=== PATIENT | male | born 1960 | race Caucasian/White ===

== ENCOUNTER → 2017-01-06 | Outpatient (CLI) | payer OTHER ==
[~2017-01-06] MED LIST: ALBU1AER9 INH; IPRA1AER2 INH; LISI-461 PO; OXYC-106 PO; OXYM1TAB25 PO; PRT40 PO
[2017-01-06 12:31] LABS: BLOOD UREA NITROGEN 17 mg/dl (7-18); BUN/CREATININE RATIO 20.4 (10-20); CALCIUM 9.4 mg/dl (8.5-10.1); CARBON DIOXIDE 27 mmol/L (21-32); CHLORIDE 104 mmol/L (98-107); CREATININE 0.84 mg/dl (0.60-1.40); GLUCOSE 108 mg/dl (70-99); POTASSIUM 4.4 mmol/L (3.5-5.1); SODIUM 137 mmol/L (136-145)
== END | disposition home or self-care (01) ==
LOC: C.LABBFT 10:10
PROVIDERS: ATTEND Nurse Practitioner
DX: I10 Essential (primary) hypertension (principal)

== ENCOUNTER → 2017-06-23 | Outpatient (CLI) | payer OTHER ==
[2017-06-23 17:41] LABS: ALT/SGPT 25 U/L (12-78); BLOOD UREA NITROGEN 12 mg/dl (7-18); BUN/CREATININE RATIO 14.5 (10-20); CALCIUM 9.2 mg/dl (8.5-10.1); CARBON DIOXIDE 30 mmol/L (21-32); CHLORIDE 103 mmol/L (98-107); CHOLESTEROL 176 mg/dl (0-200); CREATININE 0.85 mg/dl (0.60-1.40); GLUCOSE 97 mg/dl (70-99); POTASSIUM 4.5 mmol/L (3.5-5.1); SODIUM 137 mmol/L (136-145)
[2017-06-23 17:51] LABS: ALB/GLOB RATIO 0.9 (0.9-2); ALKALINE PHOSPHATASE 103 U/L (45-117); AST/SGOT 18 U/L (15-37); CHOLESTEROL/HDL RATIO 3.7; HDL CHOLESTEROL 47 mg/dl; LDL CHOLESTEROL CALCULATED 105 mg/dl; PROSTATE SPECIFIC ANTIGEN 0.262 ng/ml (0.000-4.000); TRIGLYCERIDES 119 mg/dl (0-150); VERY LOW DENSITY LIPOPROT CALC 24 mg/dl
== END | disposition home or self-care (01) ==
LOC: C.LABBFT 12:07
PROVIDERS: ATTEND Nurse Practitioner
DX: Z12.5 Encounter for screening for malignant neoplasm of prostate (principal); I10 Essential (primary) hypertension

== ENCOUNTER 2017-10-21 06:59 | Emergency (ER) | payer OTHER ==
[~2017-10-21] VITALS: Ht 172.7 cm; Wt 100.0 kg
[2017-10-21 07:07] VITALS: TEMP 36.5; Ht 172.7 cm; Wt 100.0 kg
[2017-10-21] MEDS ORDERED: ONDANSETRON INJ 2 MG/ML 2 ML VIAL IV STA (07:21)
[2017-10-21] MEDS ORDERED: HYDROmorphone INJ 1 MG/ML SYR IV STA ×2 (07:21→08:23)
--- NOTE | 2017-10-21 07:21 | EMERGENCY ROOM VISIT NOTE ---
History Report prepared by Jj: Sven Salmon Under the Supervision of: Dr. Bethel Wiseman M.D. First contact with patient: 07:11 Chief Complaint: FALL Stated Complaint: FALL History of Present Illness The patient is a 56 year old male who presents to the Emergency Room with complaints of constant right hip pain and lower back pain following a fall occurring an hour ago. The patient states that he was walking on his driveway this morning, when his right leg started to feel numb. He notes that his leg then gave out on him, causing him to fall on his left knee and roll over on his back. He reports that he did not hit his head or lose consciousness during or after the fall. The patient states that he laid in his driveway for 45 minutes prior to EMS arriving. He denies any CP, SOB, and abdominal pain. He notes that he has a history of back problems, hip problems, and high blood pressure, but is not currently taking any blood thinners. He reports that his leg feels like it normally does, but states that his pain is worse than usual. He rates his pain as an 8/10. Source of History: patient Onset: an hour ago Position: back (lower), other (right hip) Symptom Intensity: 8/10 Timing: constant Associated Symptoms: No LOC, No chest pain, No SOB, No abdominal pain Note: He also complains of right leg numbness and right leg pain. Review of Systems See HPI for pertinent positives & negatives. A total of 10 systems reviewed and were otherwise negative. Past Medical & Surgical Medical Problems: (1) Acute kidney injury (2) ARF (acute renal failure) (3) Empyema (4) HTN (hypertension) (5) Leg pain Old medical records were reviewed. Nurse's notes were reviewed and I agree with. Family History Diabetes mellitus FH: cancer FH: heart disease FH: lung disease Hypertension Seizures Social History Smoking Status: Current Every Day Smoker Alcohol Use: none Drug Use: marijuana Marital Status: single Housing Status: lives alone Occupation Status: disabled Current/Historical Medications Scheduled Lisinopril (Zestril), 10 MG PO DAILY Oxycodone Hcl (Oxycodone Hcl), 15 MG PO QID Scheduled PRN Albuterol Hfa (Ventolin Hfa), 2 PUFFS INH Q4 PRN for cough/wheeze Ipratropium-Albuterol (Combivent Respimat), 1 PUFF INH Q6H PRN for Shortness of Breath Allergies Coded Allergies: Sulfa Drugs (Verified Allergy, Unknown, 10/21/17) Physical Exam Vital Signs Date Time Temp Pulse Resp B/P (MAP) Pulse Ox O2 Delivery O2 Flow Rate FiO2 10/21/17 08:59 86 16 135/101 94 10/21/17 08:28 81 18 148/96 96 10/21/17 07:07 36.5 72 20 172/108 97 Room Air Physical Exam General: Non-ill appearing 56 year old male in no acute distress. HEENT: Normal cephalic atraumatic. Pupils are equal round and reactive to light. Extraocular movements are intact. Oropharynx is pink with moist mucous membranes. No swelling of the mouth lips or tongue. Neck: Supple with a midline trachea. No meningeal signs or stiffness, no JVD or bruits. No Stridor. Chest: Clear to auscultation bilaterally. No wheezes or rhonchi. No increased work of breathing. Heart: regular rate and rhythm. Back: Back pain mostly with movement. Abdomen: Soft nontender, nondistended without rebound guarding or rigidity. Extremities: No cyanosis clubbing or edema. No calf tenderness or assymetry. Pain with movement of right leg, no new numbness or weakness. Spine/Back. Non tender to palpation. No CVA tenderness Skin: Good turgor without rashes. Neurologic exam: Cranial nerves two through 12 are intact. Motor and sensation are intact and symmetrical throughout. Medical Decision & Procedures ER Provider Diagnostic Interpretation: Radiology results as stated below per my review and radiologist interpretation: LUMBAR SPINE 5 VIEWS FINDINGS: There is no fracture. No subluxation. Moderate degenerative disc disease at L1-L2 which has slightly progressed. Mild degenerative disc disease within the lower thoracic spine is also progressed. Mild facet degenerative changes within the lower lumbar spine. IMPRESSION: No fracture or subluxation within the lumbar spine. Slight progression of the degenerative changes as described above. Electronically signed by: Didier Guerrero M.D. 10/21/2017 8:23 AM R PELVIS/UNILATERAL HIP 2-3VIEWS FINDINGS: No fracture or dislocation within the pelvis or hips. The sacrum is intact. Cartilage spaces are maintained for age. Soft tissues are unremarkable. IMPRESSION: No fracture or dislocation within the pelvis or hips. Electronically signed by: Didier Guerrero M.D. 10/21/2017 8:21 AM Medications Administered Medications (Trade) Dose Ordered Sig/Roberto Route Start Time Stop Time Status Last Admin Dose Admin Ondansetron HCl (Zofran Inj) 4 mg NOW STAT IV 10/21/17 07:21 10/21/17 07:23 DC 10/21/17 07:33 4 MG Hydromorphone HCl (Dilaudid Inj) 1 mg NOW STAT IV 10/21/17 07:21 10/21/17 07:23 DC 10/21/17 07:34 1 MG Hydromorphone HCl (Dilaudid Inj) 1 mg NOW STAT IV 10/21/17 08:23 10/21/17 08:24 DC 10/21/17 08:29 1 MG ED Course 0712: Past medical records reviewed. The patient was evaluated in room B6, and a complete history and physical examination were performed. 0721: Dilaudid Inj 1mg IV, Zofran Inj 4mg IV 0821: Upon reevaluation, the patient is stable. I discussed the results and treatment plan with him. He verbalized agreement of the treatment plan but would like a cane. The patient was discharged home. Medical Decision Differential diagnoses include: trauma, acute exacerbation of chronic pain, cauda equina, and lumbar disc disease. This patient comes in as described above. He was placed in room B6. He has chronic back pain. He fell today he said that his back and legs hurt and went numb which is chronic for him. He has no new numbness or weakness. He laid outside for a short period time. He has no syncope or any other complaints. IV access established was given IV Dilaudid as well as Zofran and x-rays were obtained. He was reassessed frequently. He did require additional Dilaudid. X -rays of the back and the hip were unremarkable. He was able ambulate with a cane was given a cane to go home with. He should return if increasing pain, worsening of symptoms, fever or chills, any new problems or concerns Medication Reconcilliation Current Medication List: was personally reviewed by me Blood Pressure Screening Patient's blood pressure: Elevated blood pressure Blood pressure disposition: Referred to PCP Impression Primary Impression: Low back pain Additional Impression: Right hip pain Scribe Attestation The scribe's documentation has been prepared under my direction and personally reviewed by me in its entirety. I confirm that the note above accurately reflects all work, treatment, procedures, and medical decision making performed by me. Departure Information Dispostion Home / Self-Care Referrals Dora Sen C.R.N.P. (PCP) Forms HOME CARE DOCUMENTATION FORM, IMPORTANT VISIT INFORMATION Patient Instructions My [facility] Additional Instructions Rest Be careful when getting up and down Return if: worsening of symptoms, increasing pain, numbness or weakness, change in bowel or bladder function, any new problems or concerns Follow-up with your doctor on Monday for recheck Continue to use your current pain medications Problem Qualifiers
[2017-10-21] MEDS ORDERED: VNTHFA/IN INH (07:42)
[2017-10-21] MEDS ORDERED: OXY/15 PO (07:42)
--- NOTE | 2017-10-21 08:23 | DIAGNOSTIC IMAGING REPORT ---
R PELVIS/UNILATERAL HIP 2-3VIEWS CLINICAL HISTORY: fall. Right hip pain. COMPARISON STUDY: None. FINDINGS: No fracture or dislocation within the pelvis or hips. The sacrum is intact. Cartilage spaces are maintained for age. Soft tissues are unremarkable. IMPRESSION: No fracture or dislocation within the pelvis or hips. Electronically signed by: Didier Guerrero M.D. 10/21/2017 8:21 AM Dictated Date/Time: 10/21/2017 8:20 AM
--- NOTE | 2017-10-21 08:25 | DIAGNOSTIC IMAGING REPORT ---
LUMBAR SPINE 5 VIEWS HISTORY: Low back pain. Fall. eval for trauma COMPARISON: Lumbar spine 08/04/2013. FINDINGS: There is no fracture. No subluxation. Moderate degenerative disc disease at L1-L2 which has slightly progressed. Mild degenerative disc disease within the lower thoracic spine is also progressed. Mild facet degenerative changes within the lower lumbar spine. IMPRESSION: No fracture or subluxation within the lumbar spine. Slight progression of the degenerative changes as described above. Electronically signed by: Didier Guerrero M.D. 10/21/2017 8:23 AM Dictated Date/Time: 10/21/2017 8:21 AM
[2017-10-21 08:59] VITALS: BP 135/101; PULSE 86; O2SAT 94
== END 2017-10-21 09:00 | disposition home or self-care (01) ==
LOC: EDBD 06:59 → C.EDB 07:00
DX: M54.5 Low back pain (principal); M25.551 Pain in right hip; W18.30XA Fall on same level, unspecified, initial encounter; Y93.01 Activity, walking, marching and hiking; Y99.8 Other external cause status; I10 Essential (primary) hypertension; J43.9 Emphysema, unspecified; F17.200 Nicotine dependence, unspecified, uncomplicated; Z83.3 Family history of diabetes mellitus; Z82.49 Family history of ischemic heart disease and other diseases of the circulatory system; Z82.0 Family history of epilepsy and other diseases of the nervous system; Z79.899 Other long term (current) drug therapy